=== PATIENT | female | born 1935 | race Caucasian/White ===

== ENCOUNTER 2018-01-16 17:23 | Inpatient (IN) | payer MEDICARE, OTHER ==
[2018-01-16] VITALS (9 sets, daily range): BP systolic 98–115; BP diastolic 46–64
[~2018-01-16] VITALS: Ht 162.6 cm; Wt 82.1 kg
--- NOTE | 2018-01-16 18:09 | NUR ---
DR CARTY WAS PAGED.
--- NOTE | 2018-01-16 18:12 | NUR ---
CALLED NURSING HARNESS TIER AND REQUESTED A TELE BED FOR THIS PT
[2018-01-16 18:14] LABS: CALCIUM, SERUM 8.1 mg/dL (8.5-10.1); CARBON DIOXIDE 22 mmol/L (21-32); CHLORIDE 105 mmol/L (98-107); CREATININE 1.7 mg/dL (0.6-1.3); GLUCOSE 130 mg/dL (74-106); POTASSIUM 3.9 mmol/L (3.5-5.1); SODIUM SERUM 138 mmol/L (136-145); UREA NITROGEN, BLOOD 46 mg/dL (7-18)
[2018-01-16] MEDS ORDERED: OLOP5DRO EACHEYE (18:14)
[2018-01-16] MEDS ORDERED: WARF3TAB59 PO (18:14)
[2018-01-16] MEDS ORDERED: ATEN25TA PO (18:14)
[2018-01-16] MEDS ORDERED: VALS1TAB6 PO (18:14)
[2018-01-16 18:27] LABS: BASOPHILS % (AUTO) 0.4 % (0.0-2.0); EOSINOPHILS % (AUTO) 0.1 % (0.0-6.0); LYMPHOCYTES # (AUTO) 0.8 /CMM (0.8-4.8); LYMPHOCYTES % (AUTO) 12.6 % (20.0-44.0); MEAN CORPUSCULAR HEMOGLOBIN 27 PG (26.0-33.0); MEAN CORPUSCULAR HGB CONC 33 g/dl (31.0-36.0); MEAN CORPUSCULAR VOLUME 81 fL (82-100); MONOCYTES # (AUTO) 0.4 /CMM (0.1-1.30); MONOCYTES % (AUTO) 7.2 % (2.0-12.0); NEUTROPHILS % (AUTO) 79.7 % (43.0-81.0); PLATELET COUNT (AUTO) 181 /CMM (150-450); RDW COEFFICIENT OF VARIATION 15.3 (11.5-15.0); WHITE BLOOD COUNT (AUTO) 6.2 K/uL (4.3-11.0)
[2018-01-16 18:31] LABS: RED BLOOD CELL COUNT(AUTO) 1.71 MIL/uL (4.0-5.2)
[2018-01-16 18:32] LABS: HEMATOCRIT 14 % (33-45); HEMOGLOBIN 4.6 g/dL (11.5-14.8)
[2018-01-16 18:38] LABS: INR 5.59 (0.85-1.15)
[2018-01-16] MEDS ORDERED: ASPIRIN 81 MG TAB.CHEW ONE (18:50)
[2018-01-16] MEDS ORDERED: ASPIRIN 81 MG TAB.CHEW PO ONE (19:00)
[2018-01-16] MEDS ORDERED: ONDANSETRON HCL/PF 4 MG/2 ML VIAL IVP PRN (19:00)
[2018-01-16] MEDS ORDERED: HYDROCODONE/APAP 5/325MG 1 EACH TABLET PO PRN (19:00)
[2018-01-16] MEDS ORDERED: MAGNESIUM HYDROXIDE 30 ML UDC PO PRN (19:00)
[2018-01-16] MEDS ORDERED: MAG HYDROX/AL HYDROX/SIMETH 30 ML UDC PO PRN (19:00)
[2018-01-16] MEDS ORDERED: ACETAMINOPHEN 325 MG TABLET PO PRN (19:00)
[2018-01-16 19:14] LABS: EOSINOPHILS % (MANUAL) 1 % (0-4); LYMPHOCYTES % (MANUAL) 16 % (16-48); MONOCYTES % (MANUAL) 5 % (0-11.0); NEUTROPHILS % (MANUAL) 77 (42-76); REACTIVE LYMPHOCYTES 1 % (0-0)
--- NOTE | 2018-01-16 19:22 | NUR ---
PER DR CARTY, PT WILL NOW BE NEEDING AN ICU BED INSTEAD OF TELE/LIV. NURSING INDUCTOR TESTER WAS MADE AWARE.
--- NOTE | 2018-01-16 19:26 | NUR ---
REPORT GIVEN TO VERENA BURRELL FOR JANAE.
--- NOTE | 2018-01-16 19:53 | NUR ---
PT IS ASSIGNED TO ICU#: [id number], DX: CHEST PAIN, AND ACCEPTING MD: DR CARTY
--- NOTE | 2018-01-16 20:23 | NUR ---
HOSPICE SPIRITUAL CARE COORDINATOR NOTE RECEIVED REPORT FROM ER NURSE JOSELITO
[2018-01-16] MEDS ORDERED: PHYTONADIONE 5 MG TABLET PO ONE (20:30)
--- NOTE | 2018-01-16 20:40 | NUR ---
MAKE UP OPERATOR HELPER INITIAL NOTE RECEIVED PATIENT AWAKE A/OX4, PLEAS[place] LADY. DENIES PAIN OR DISCOMFORT AT THIS TIME, STATES SHE FEELS A LITTLE SHORT OF BREATH, SPO2 ON ROOM AIR 98%. PLACED ON 2LPMO2 VIA NC FOR COMFORT. SKIN COOL AND DRY TO TOUCH. DENIES DIZZINESS AT THIS TIME. DENIES ANY BLEEDING. PATIENT PLACED ON MONITOR, SR WITH OCC PVCS. PER PATIENT SHE LIVES AT AN APARTMENT ALONE, WITH A CAREGIVER THAT VISITS EVERYDAY. STATES SHE HAD CHEST PAIN AND DIZZINESS AT THE TIME AND CALLED HER SON WHO IS A DOCTOR AT [facility], AND HER SON CALLED THE AMBULANCE. ORIENTED PATIENT TO ROOM AND CALL LIGHT SYSTEM, PATIENT VERBALIZED UNDERSTANDING. SIDE RAILS UP AND LOCKED. BED KEPT AT LOWEST POSITION. CALL LIGHT KEPT WITHIN EASY REACH. WILL CONTINUE TO MONITOR.
--- NOTE | 2018-01-16 21:00 | NUR ---
MANAGER EMBALMER FUNERAL DIRECTOR NOTE UNABLE TO SCAN PRODUCT NUMBER FROM BLOOD BAG. BROUGHT BLOOD BACK TO BLOOD BANK, PER BLOOD BANK NETTE USE THE PAPER THAT WAS GIVEN WITH THE BLOOD FOR DOCUMENTATION. INFORMED HER WE CAN'T SCAN IT, IT WONT SHOW UP ON THE COMPUTER. PER BLOOD BANK ITS OK, JUST USE THE PAPER.
--- NOTE | 2018-01-16 21:10 | NUR ---
ADULT LIVE IN CAREGIVER NOTE SON AT BEDSIDE. PER SON HIS MOTHER IS A FULL CODE.
--- NOTE | 2018-01-16 21:20 | NUR ---
UTILITY BAG ASSEMBLER NOTE PER PATIENT SHE'S ALLERGIC TO NARCOTIC MEDICATIONS, STATES SHE DOES NOT LIKE TAKING THEM. AND TYLENOL, STATES IT GIVES HER UPSET STOMACH.
--- NOTE | 2018-01-16 21:25 | NUR ---
UNIT TENDER NOTE NO BLOOD TRANSFUSION REACTION AFTER 15 MINUTES. WILL CONTINUE TO MONITOR.
[2018-01-16] MEDS: PANTOPRAZOLE 40 MG VIAL IV SCH (21:49)
[2018-01-16] MEDS ORDERED: PHYTONADIONE 5 MG TABLET ONE (22:41)
--- NOTE | 2018-01-16 23:26 | NUR ---
CHEMISTRY TEACHER NOTE FIRST UNIT OF BLOOD COMPLETED, NO ADVERSE REACTION NOTED.
[2018-01-17] VITALS (26 sets, daily range): BP systolic 99–136; BP diastolic 40–97
--- NOTE | 2018-01-17 | NUR ---
DEALMAKER NOTE NO ADVERSE REACTION AFTER FIRST 15 MINUTES OF SECOND UNIT OF PRBC, WILL CONTINUE TO MONITOR.
--- NOTE | 2018-01-17 01:04 | NUR ---
GATHERING MACHINE SETTER NOTE PERICARE DONE, PATIENT URINATED LARGE AMOUNT IN DIAPER, NOTED WITH PINK URINE, NO FOUL ODOR NOTED, DENIES PAIN OR DISCOMFORT WHEN URINATING. DENIES BLADDER PAIN OR DISCOMFORT. WILL CONTINUE TO MONITOR.
--- NOTE | 2018-01-17 02:45 | NUR ---
SUPPLY AIDE NOTE NO BLOOD TRANSFUSION REACTION AFTER FIRST 15 MINUTES OF THIRD UNIT OF BLOOD
--- NOTE | 2018-01-17 04:30 | NUR ---
MANAGER DRUG NOTE S/P BLOOD TRANSFUSION OF THIRD UNIT, NO ADVERSE REACTION NOTED. WILL CONTINUE TO MONITOR.
[2018-01-17 05:37] LABS: BASOPHILS % (AUTO) 0.3 % (0.0-2.0); EOSINOPHILS % (AUTO) 0.3 % (0.0-6.0); HEMATOCRIT 24 % (33-45); HEMOGLOBIN 7.7 g/dL (11.5-14.8); LYMPHOCYTES # (AUTO) 1.5 /CMM (0.8-4.8); LYMPHOCYTES % (AUTO) 18.6 % (20.0-44.0); MEAN CORPUSCULAR HEMOGLOBIN 27 PG (26.0-33.0); MEAN CORPUSCULAR HGB CONC 33 g/dl (31.0-36.0); MEAN CORPUSCULAR VOLUME 83 fL (82-100); MONOCYTES # (AUTO) 0.8 /CMM (0.1-1.30); MONOCYTES % (AUTO) 9.8 % (2.0-12.0); NEUTROPHILS # (AUTO) 5.7 /CMM (1.8-8.9); PLATELET COUNT (AUTO) 138 /CMM (150-450); RED BLOOD CELL COUNT(AUTO) 2.85 MIL/uL (4.0-5.2)
[2018-01-17 05:45] LABS: CALCIUM, SERUM 7.9 mg/dL (8.5-10.1); CARBON DIOXIDE 24 mmol/L (21-32); CHLORIDE 104 mmol/L (98-107); CREATININE 1.5 mg/dL (0.6-1.3); GLUCOSE 90 mg/dL (74-106); MAGNESIUM 2.1 mg/dL (1.8-2.4); PHOSPHORUS 4.5 mg/dL (2.5-4.9); POTASSIUM 3.6 mmol/L (3.5-5.1); SODIUM SERUM 138 mmol/L (136-145); UREA NITROGEN, BLOOD 42 mg/dL (7-18)
[2018-01-17 05:48] LABS: IRON, SERUM 66 ug/dl (50-175); TOTAL IRON BINDING CAPACITY 292 ug/dl (250-450)
[2018-01-17 06:27] LABS: INR 3.34 (0.87-1.13)
--- NOTE | 2018-01-17 06:30 | NUR ---
IN HOME AIDE CLOSING NOTES NO SIGNIFICANT CHANGES OVERNIGHT. ALL NEEDS ANTICIPATED AND MET. ASSISTED TO BEDSIDE COMMODE WITH NO DIFFICULTY. URINE SAMPLE COLLECTED. NO C/O SOB AT REST, ONLY WHEN LAYING FLAT. NO C/O PAIN OR DISCOMFORT ONLY WITH ADLS, PER PATIENT TOLERABLE. KEPT CLEAN AND DRY. 3UNITS PRBC GIVEN WITH NO ADVERSE REACTIONS. SIDE RAILS UP AND LOCKED. BED KEPT AT LOWEST POSITION. CALL LIGHT KEPT WITHIN EASY REACH. WILL ENDORSE CONTINUITY OF CARE TO AM NURSE.
[2018-01-17 07:16] LABS: APPEARANCE,URINE SL CLOUDY (CLEAR); BILIRUBIN,URINE NEGATIVE (NEGATIVE); BLOOD, URINE NEGATIVE Ery/uL (NEGATIVE); COLOR,URINE YELLOW (YELLOW); KETONES,URINE NEGATIVE (NEGATIVE); LEUKOCYTE ESTERASE ,URINE NEGATIVE (NEGATIVE); NITRITE, URINE NEGATIVE (NEGATIVE); PROTEIN,URINE NEGATIVE (NEGATIVE); UGLUCOSE NEGATIVE (NEGATIVE); UROBILINOGEN,URINE 0.2 EU/dL (0.2)
--- NOTE | 2018-01-17 07:30 | NUR ---
BODY BUILDER APPRENTICE INITIAL NOTES RECEIVED PATIENT SLEEPING IN BED, EASY TO AROUSE, AOX4, ON NC SATURATING 100% O2, ON TELE MONITORING SR, WITH OCCASIONAL PVCS, ABLE TO USE BEDSIDE COMMODE, IV LFA 18G, RW 20G, BED IN LOW AND LOCKED POSITION, CALL LIGHT WITHIN REACH, WILL CONTINUE TO MONITOR.
[2018-01-17] MEDS: PANTOPRAZOLE 40 MG VIAL IV SCH ×2 (09:37→20:52)
[2018-01-17] MEDS: OLOPATADINE HCL 0.1% OPHTH BOTTLE EACHEYE SCH (09:37)
[2018-01-17 12:30] LABS: BASOPHILS # (AUTO) 0.1 /CMM (0.0-0.2); BASOPHILS % (AUTO) 0.6 % (0.0-2.0); EOSINOPHILS % (AUTO) 0.4 % (0.0-6.0); HEMATOCRIT 24 % (33-45); HEMOGLOBIN 7.9 g/dL (11.5-14.8); LYMPHOCYTES % (AUTO) 10.7 % (20.0-44.0); MEAN CORPUSCULAR HEMOGLOBIN 27 PG (26.0-33.0); MEAN CORPUSCULAR HGB CONC 33 g/dl (31.0-36.0); MEAN CORPUSCULAR VOLUME 83 fL (82-100); MONOCYTES # (AUTO) 0.8 /CMM (0.1-1.30); MONOCYTES % (AUTO) 9.3 % (2.0-12.0); NEUTROPHILS # (AUTO) 7.1 /CMM (1.8-8.9); PLATELET COUNT (AUTO) 137 /CMM (150-450); RDW COEFFICIENT OF VARIATION 17.2 (11.5-15.0); RED BLOOD CELL COUNT(AUTO) 2.93 MIL/uL (4.0-5.2)
[2018-01-17] MEDS: IV D5/0.45 NACL 1,000 ML IV SCH (13:39)
--- NOTE | 2018-01-17 14:30 | NUR ---
AUTOMOTIVE DESIGN DRAFTER NOTES PATIENT SEEN BY GI CONSULT FOR POSSIBLE EGD AND COLONOSCOPY ONCE PATIENT IS STABLE. NEW ORDERS GIVEN.
[2018-01-17] MEDS: POLYETHYLENE GLYCOL 3350 17 GM POWD.PACK PO SCH (15:05)
--- NOTE | 2018-01-17 18:32 | NUR ---
BUTCHER SUPERVISOR END NOTES PATIENT RESTING IN BED, NO SIGNS OF DISTRESS, WILL ENDORSE TO BEHAVIOR THERAPIST FOR CONTINUITY OF CARE.
--- NOTE | 2018-01-17 18:55 | NUR ---
WILDLIFE PROTECTOR NOTE RECEIVED PT AOX3, SPEECH CLEAR, EVEN TONE AND PRESSURE, REPORTS BACK PAIN ALL THE TIME, ON 2L O2 VIA NC TOLERATING WELL, NO S/SX OF CARDIAC OR RESPIRATORY DISTRESS. PT IS AMBULATORY WITH ASSIST, ON TELE SR, SKIN KEPT DRY, LFA #18G SL, R WRIST 20G SL, FLUSHING WELL, PATENT SITES CDI, SAFETY MAINTAINED, BED IN LOW LOCKED POSITION, CALL LIGHT WITHIN REACH, WILL CONTINUE TO MONITOR FRO ANY CHANGES IN CONDITION.
--- NOTE | 2018-01-17 19:08 | NUR ---
REAMER HAND NOTES PATIENT TRANSFERRED TO LIV UNIT ROOM 105, BEDSIDE REPORT GIVEN TO VERENA TRIVEDI.
[2018-01-18] VITALS: BP 122/52
[2018-01-18] MEDS: IV D5/0.45 NACL 1,000 ML IV SCH (03:02)
[2018-01-18 04:00] VITALS: BP 111/45
[2018-01-18 06:25] LABS: BASOPHILS % (AUTO) 0.3 % (0.0-2.0); EOSINOPHILS % (AUTO) 2.3 % (0.0-6.0); HEMATOCRIT 22 % (33-45); HEMOGLOBIN 7.2 g/dL (11.5-14.8); LYMPHOCYTES # (AUTO) 1.2 /CMM (0.8-4.8); MEAN CORPUSCULAR HEMOGLOBIN 27 PG (26.0-33.0); MEAN CORPUSCULAR HGB CONC 33 g/dl (31.0-36.0); MEAN CORPUSCULAR VOLUME 83 fL (82-100); MONOCYTES # (AUTO) 0.7 /CMM (0.1-1.30); MONOCYTES % (AUTO) 10.8 % (2.0-12.0); NEUTROPHILS % (AUTO) 66.6 % (43.0-81.0); PLATELET COUNT (AUTO) 126 /CMM (150-450); RDW COEFFICIENT OF VARIATION 16.7 (11.5-15.0); RED BLOOD CELL COUNT(AUTO) 2.63 MIL/uL (4.0-5.2); WHITE BLOOD COUNT (AUTO) 6.1 K/uL (4.3-11.0)
[2018-01-18 06:37] LABS: ALANINE AMINOTRANSFERASE 15 U/L (12-78); ALBUMIN 2.2 g/dL (3.4-5.0); ALKALINE PHOSPHATASE 67 U/L (46-116); ASPARTATE AMINOTRANSFERASE 23 U/L (15-37); CALCIUM, SERUM 7.5 mg/dL (8.5-10.1); CARBON DIOXIDE 27 mmol/L (21-32); CHLORIDE 106 mmol/L (98-107); CREATININE 1.1 mg/dL (0.6-1.3); GLUCOSE 114 mg/dL (74-106); MAGNESIUM 1.8 mg/dL (1.8-2.4); PHOSPHORUS 3.1 mg/dL (2.5-4.9); POTASSIUM 3.1 mmol/L (3.5-5.1); SODIUM SERUM 140 mmol/L (136-145); TOTAL PROTEIN, SERUM 5.8 g/dL (6.4-8.2); TROPONIN I 0.085 ng/mL (0.00-0.056); UREA NITROGEN, BLOOD 22 mg/dL (7-18)
[2018-01-18 07:44] LABS: INR 2.71 (0.87-1.13)
[2018-01-18 08:00] VITALS: BP 118/60
--- NOTE | 2018-01-18 08:00 | NUR ---
RUBBER PROCESS HAND NOTE RECEIVED PATIENT SITTING IN CHAIR IN HER ROOM, A&OX4, ON 02 VIA NC SATURATING 98%, ON TELE MONITORING SR, ABLE TO USE TOILET, IV ON LFA INTACT, 18G INFUSING D51/2NS AT 75ML/HR, RW 20G INTACT AND SALINE LOCKED. BED IN LOW AND LOCKED POSITION, CALL LIGHT WITHIN REACH. DISCUSSED TODAY'S CARE PLAN WITH PATIENT, PATIENT AGREEABLE AND AWARE OF PLAN. WILL CONTINUE TO MONITOR.
[2018-01-18] MEDS: PANTOPRAZOLE 40 MG VIAL IV SCH ×2 (08:48→21:54)
[2018-01-18] MEDS: OLOPATADINE HCL 0.1% OPHTH BOTTLE EACHEYE SCH (08:48)
[2018-01-18 12:00] VITALS: BP 107/48
[2018-01-18] MEDS ORDERED: POTASSIUM CHLORIDE 20 MEQ TAB.PRT.SR PO SCH (12:00)
[2018-01-18] MEDS: POTASSIUM CHLORIDE 20 MEQ POWDER PACKET PO SCH ×2 (12:28→13:30)
[2018-01-18] MEDS ORDERED: POTASSIUM CHLORIDE 20 MEQ POWDER PACKET GT ONE (15:30)
[2018-01-18 16:00] VITALS: BP 113/57
--- NOTE | 2018-01-18 16:30 | NUR ---
MS RN NOTE: PATIENT WAS SEEN BY DR. ROSENTHAL AND HE WAS AWARE OF THE PATIENT'S HEMOGLOBIN AND HEMATOCRIT (7.2/22) LEVEL FOR TODAY. PER MD, HE WANTED A REPEAT OF THE CBC AND BMP TODAY AT 1700. PATIENT WAS MADE AWARE AND UNDERSTOOD IT.
[2018-01-18 17:43] LABS: CALCIUM, SERUM 7.9 mg/dL (8.5-10.1); CARBON DIOXIDE 24 mmol/L (21-32); CHLORIDE 108 mmol/L (98-107); GLUCOSE 96 mg/dL (74-106); POTASSIUM 3.7 mmol/L (3.5-5.1); SODIUM SERUM 141 mmol/L (136-145); UREA NITROGEN, BLOOD 15 mg/dL (7-18)
[2018-01-18 17:57] LABS: BASOPHILS # (AUTO) 0.1 /CMM (0.0-0.2); BASOPHILS % (AUTO) 0.9 % (0.0-2.0); EOSINOPHILS % (AUTO) 3.1 % (0.0-6.0); HEMATOCRIT 24 % (33-45); HEMOGLOBIN 7.7 g/dL (11.5-14.8); LYMPHOCYTES # (AUTO) 1.5 /CMM (0.8-4.8); LYMPHOCYTES % (AUTO) 24.2 % (20.0-44.0); MEAN CORPUSCULAR HEMOGLOBIN 27 PG (26.0-33.0); MEAN CORPUSCULAR HGB CONC 32 g/dl (31.0-36.0); MEAN CORPUSCULAR VOLUME 84 fL (82-100); MONOCYTES # (AUTO) 0.6 /CMM (0.1-1.30); MONOCYTES % (AUTO) 10.3 % (2.0-12.0); NEUTROPHILS # (AUTO) 3.8 /CMM (1.8-8.9); NEUTROPHILS % (AUTO) 61.5 % (43.0-81.0); PLATELET COUNT (AUTO) 132 /CMM (150-450); RDW COEFFICIENT OF VARIATION 17.1 (11.5-15.0); RED BLOOD CELL COUNT(AUTO) 2.85 MIL/uL (4.0-5.2); WHITE BLOOD COUNT (AUTO) 6.2 K/uL (4.3-11.0)
[2018-01-18 18:20] LABS: OCCULT BLOOD STOOL POSITIVE (NEGATIVE)
--- NOTE | 2018-01-18 18:23 | NUR ---
MS RN NOTE: CALLED AND SPOKE WITH DR. ROSENTHAL RE: THE PATIENT'S REPEAT CBC AND BMP RESULT. MD WITH NEW ORDERS, NOTED AND CARRIED OUT. PER MD, HE ALREADY SPOKE WITH THE PATIENT'S SON REGARDING THE PLAN FOR EGD AND COLONOSCOPY.
[2018-01-18] MEDS ORDERED: PHYTONADIONE INJ 10 MG/1 ML AMPUL IV ONE ×2 (18:30→21:00)
--- NOTE | 2018-01-18 18:30 | NUR ---
MS RN NOTE: REPORTED TO DR. PALMA ABOUT THE PATIENT'S OCCULT BLOOD STOOL RESULT. MD WAS INFORMED THAT THIS IS THE FIRST TIME THE PATIENT HAD A BM AFTER GETTING DOWN GRADED FROM ICU. WITH NO NEW ORDER AT THIS TIME.
--- NOTE | 2018-01-18 19:00 | NUR ---
MS RN CLOSING NOTES GAVE REPORT AND ENDORSED CONTINUITY OF CARE TO PM RN. PATIENT A&0X4, VS STABLE, PATIENT RESTING IN BED, FAMILY AT BEDSIDE.
--- NOTE | 2018-01-18 19:30 | NUR ---
RN OPENING NOTES; RECEIVED PATIENT ON BED AWAKE AND ALERT NOT IN APPARENT DISTRESS ON ROOM AIR. OFF TELE. WITH SON MEAGAN AND DTR IN LAW ALEJANDRO AT BEDSIDE. BOTH FAMILY MEMBERS ARE HEALTHCARE PROVIDERS WELL. OBTAINED CONSENT FOR EGD AND COLONOSCOPY WELL ANESTHESIA AND BLOOD TRANSFUSION CONSENT FROM PATIENT. PATIENT AND SON AWARE OF PROCEDURE. INFORMED PATIENT THAT SHE WILL BE NPO AFTER MIDNIGHT AND THAT SHE WILL HAVE TO DRINK GOLYTLE PREP. PATIENT AWARE AND VERBALIZED UNDERSTANDING. WHEN IV ACCESS ARE ASSESSED ON LEFT AC AND R WRIST, BOTH ARE NOT WORKING WELL AND WITH THE LEFT AC PATIENT COMPLAINS OF PAIN WHEN FLUSHED AND NOTED AREA TO BE WARM TO TOUCH AND ERYTHEMATOUS, POSSIBLY PHLEBITIS. PATIENT;S FAMILY SUSPECTS THAT THE VITAMIN K THAT WAS GIVEN TO HER VIA IV MOMENTS AGO MIGHT NOT HAVE BEEN INTRODUCED WELL IV WAS NOT WORKING PROPERLY. DR BRANCH MADE AWARE OVER THE PHONE, ASKED IF HE WANTED TO DO A REPEAT INR OR ANY LABS, PER MD TO JUST GIVE ANOTHER DOSE OF VITAMIN K 5 MG. PHARMACY MADE AWARE. SAFETY MEASURES ENSURED. CALL LIGHT IN REACH AT ALL TIMES. CONTINUOUSLY MONITORED.
[2018-01-18 20:00] VITALS: BP 137/73
--- NOTE | 2018-01-18 20:16 | NUR ---
RN NOTES: RECEIVED 2UNITS PLASMA ORDER FROM DR PALMA. CONTACTED DNP, MADE AWARE THAT DR BRANCH ALREADY ORDERED VITAMIN K TO BE GIVEN IV. PER LOUIE DESPITE THIS, STILL GIVE PLASMA 8 HOURS PRIOR TO PROCEDURE AND LASIX 20 MG IV TO BE GIVEN POST 1ST UNIT OF PLASMA. NOTED AND CARRIED OUT. BLOOD BANK AWARE, WITH 2 UNITS READY. ACCORDING TO PROCEDURE LIST, PATIENT IS SCHEDULED TOMORROW AT 1600. SON AND DAUGHTER IN LAW MADE AWARE OVER THE PHONE REGARDING PLANS.
[2018-01-18] MEDS ORDERED: PEG 3350/NA SULF,BICARB,CL/KCL 4,000 ML BOTTLE PO ONE (21:00)
[2018-01-18] MEDS: POLYETHYLENE GLYCOL 3350 17 GM POWD.PACK PO SCH (21:54)
[2018-01-19] VITALS (13 sets, daily range): BP systolic 115–156; BP diastolic 55–78
[2018-01-19] MEDS ORDERED: FUROSEMIDE 20 MG/2 ML VIAL IV PRN
[2018-01-19] MEDS ORDERED: FUROSEMIDE 20 MG/2 ML VIAL IV ONE
--- NOTE | 2018-01-19 06:15 | NUR ---
RN NOTES: PATIENT CONTINUOUSLY GOING TO THE COMMODE. WITH CLEAR, NO SEDIMENTS, NO FORMED STOOL BUT CLEAR BROWN COLORED LIQUID STOOL MIXED WITH URINE. PATIENT IS MORE THAN HALF WAY THROUGH THE GOLYTLE. PATIENT REFUSING TO TAKE ANYMORE. EXPLAINED RISK AND BENEFITS, ENCOURAGED TO DRINK MUCH SHE CAN. PATIENT AGREED TO DRINK 2 MORE CUPS. 8AM 0715 CALLED BLOOD BANK TO THAW PLASMA IN PREPARATION. ENDORSED TO BENNIE ALBARADO RE PLASMA TO BE STARTED BY 8AM WHICH IS 8 HOURS PRIOR SCHEDULED PROCEDURE AT 1600. ENDORSED LASIX POST 1ST UNIT ORDERED. REPORT GIVEN TO BENNIE ALBARADO. KEPT PT NPO EXCEPT MEDS.
[2018-01-19 06:23] LABS: BASOPHILS % (AUTO) 0.7 % (0.0-2.0); EOSINOPHILS % (AUTO) 3.5 % (0.0-6.0); HEMATOCRIT 22 % (33-45); HEMOGLOBIN 7.1 g/dL (11.5-14.8); LYMPHOCYTES % (AUTO) 21.9 % (20.0-44.0); MEAN CORPUSCULAR HEMOGLOBIN 27 PG (26.0-33.0); MEAN CORPUSCULAR HGB CONC 33 g/dl (31.0-36.0); MEAN CORPUSCULAR VOLUME 84 fL (82-100); MONOCYTES # (AUTO) 0.5 /CMM (0.1-1.30); MONOCYTES % (AUTO) 11.2 % (2.0-12.0); NEUTROPHILS # (AUTO) 2.8 /CMM (1.8-8.9); NEUTROPHILS % (AUTO) 62.7 % (43.0-81.0); PLATELET COUNT (AUTO) 119 /CMM (150-450); RDW COEFFICIENT OF VARIATION 16.7 (11.5-15.0); RED BLOOD CELL COUNT(AUTO) 2.61 MIL/uL (4.0-5.2); WHITE BLOOD COUNT (AUTO) 4.4 K/uL (4.3-11.0)
[2018-01-19 06:34] LABS: INR 1.45 (0.87-1.13)
[2018-01-19 06:42] LABS: CALCIUM, SERUM 7.6 mg/dL (8.5-10.1); CARBON DIOXIDE 26 mmol/L (21-32); CHLORIDE 107 mmol/L (98-107); GLUCOSE 89 mg/dL (74-106); POTASSIUM 3.4 mmol/L (3.5-5.1); SODIUM SERUM 141 mmol/L (136-145); UREA NITROGEN, BLOOD 13 mg/dL (7-18)
[2018-01-19] MEDS: OLOPATADINE HCL 0.1% OPHTH BOTTLE EACHEYE SCH (09:44)
[2018-01-19] MEDS: PANTOPRAZOLE 40 MG VIAL IV SCH ×2 (09:44→21:34)
[2018-01-19] MEDS: POTASSIUM CL. PREMIX PERIPHER. 50 ML IV SCH ×2 (11:46→13:04)
[2018-01-19 11:49] LABS: INR 1.17 (0.87-1.13)
[2018-01-19] MEDS ORDERED: ANESTHESIA TRAY IN PYXIS 1 EA TRAY MC ONE (14:34)
[2018-01-19] MEDS ORDERED: METHYLENE BLUE 10 ML VIAL ONE (15:45)
[2018-01-19] MEDS: POLYETHYLENE GLYCOL 3350 17 GM POWD.PACK PO SCH (21:34)
[2018-01-19] MEDS: ACETYLCYSTEINE 10% 3,000 MG/30 ML VIAL PO SCH (21:44)
[2018-01-19] MEDS ORDERED: IOHEXOL-300 100 ML VIAL IV ONE (21:47)
[2018-01-19] MEDS ORDERED: IV NS 0.9% 250 ML IV ONE (21:48)
[2018-01-19] MEDS ORDERED: CT SWABBABLE VALVE TRANS SET 1 EA INFUS.SET MC ONE (21:48)
[2018-01-20 04:00] VITALS: BP 113/62
[2018-01-20 06:27] LABS: BASOPHILS % (AUTO) 0.4 % (0.0-2.0); EOSINOPHILS % (AUTO) 2.3 % (0.0-6.0); HEMATOCRIT 22 % (33-45); HEMOGLOBIN 7.2 g/dL (11.5-14.8); LYMPHOCYTES # (AUTO) 0.7 /CMM (0.8-4.8); LYMPHOCYTES % (AUTO) 16.6 % (20.0-44.0); MEAN CORPUSCULAR HEMOGLOBIN 27 PG (26.0-33.0); MEAN CORPUSCULAR HGB CONC 33 g/dl (31.0-36.0); MEAN CORPUSCULAR VOLUME 83 fL (82-100); MONOCYTES # (AUTO) 0.4 /CMM (0.1-1.30); MONOCYTES % (AUTO) 9.9 % (2.0-12.0); NEUTROPHILS # (AUTO) 2.9 /CMM (1.8-8.9); NEUTROPHILS % (AUTO) 70.8 % (43.0-81.0); PLATELET COUNT (AUTO) 117 /CMM (150-450); RDW COEFFICIENT OF VARIATION 16.4 (11.5-15.0); RED BLOOD CELL COUNT(AUTO) 2.65 MIL/uL (4.0-5.2); WHITE BLOOD COUNT (AUTO) 4.1 K/uL (4.3-11.0)
[2018-01-20 06:42] LABS: INR 1.14 (0.87-1.13)
[2018-01-20 06:57] LABS: CALCIUM, SERUM 7.9 mg/dL (8.5-10.1); CARBON DIOXIDE 28 mmol/L (21-32); CHLORIDE 105 mmol/L (98-107); GLUCOSE 87 mg/dL (74-106); MAGNESIUM 1.6 mg/dL (1.8-2.4); PHOSPHORUS 3.1 mg/dL (2.5-4.9); POTASSIUM 3.2 mmol/L (3.5-5.1); SODIUM SERUM 142 mmol/L (136-145); UREA NITROGEN, BLOOD 9 mg/dL (7-18)
[2018-01-20 07:02] LABS: THYROID STIMULATING HORMONE 1.505 uIU/mL (0.358-3.74)
--- NOTE | 2018-01-20 07:44 | NUR ---
RN NOTE: PATIENT RECEIVED ALERT AWAKE ORIENTED X 4. ON ROOM AIR, NO BREATHING DIFFICULTY NOTED. DENIES PAIN & DISCOMFORT. SAFETY MEASURES OBSERVED. PATIENT CLEAN & DRY. IV CATH INTACT, DRESSING DRY & CLEAN. SALINE LOCK. ENCOURAGE TO USE CALL LIGHT FOR ASSISTANCE. WILL CONTINUE TO MONITOR.
[2018-01-20 08:00] VITALS: BP 112/62
[2018-01-20] MEDS: ACETYLCYSTEINE 10% 3,000 MG/30 ML VIAL PO SCH (09:08)
[2018-01-20] MEDS: PANTOPRAZOLE 40 MG VIAL IV SCH ×2 (09:08→21:37)
[2018-01-20] MEDS: OLOPATADINE HCL 0.1% OPHTH BOTTLE EACHEYE SCH (09:08)
[2018-01-20] MEDS ORDERED: POTASSIUM CL. PREMIX PERIPHER. 50 ML IV SCH (11:00)
[2018-01-20] MEDS ORDERED: Magnesium 1GM/D5W 100ML PREMIX 100 ML IV SCH (11:00)
[2018-01-20] MEDS ORDERED: MAGNESIUM OXIDE 400 MG TABLET PO ONE (11:30)
[2018-01-20] MEDS: POTASSIUM CHLORIDE 20 MEQ TAB.PRT.SR PO SCH ×2 (12:11→13:11)
[2018-01-20] MEDS ORDERED: TRAMADOL HCL 50 MG TABLET PO PRN (15:00)
[2018-01-20 16:00] VITALS: BP 131/76
--- NOTE | 2018-01-20 18:37 | NUR ---
RN NOTE: PATIENT REMAINS ALERT AWAKE ORIENTED. ON ROOM AIR, NO BREATHING DISTRESS NOTED. DENIES PAIN & DISCOMFORT. NO ANY SIGNIFICANT CHANGES NOTED DURING SHIFT. SAFETY MEASURES OBSERVED. CALL LIGHT WITHIN REACH. WILL CONTINUE TO MONITOR LAB VALUES.
--- NOTE | 2018-01-20 19:37 | NUR ---
RN MS INITIAL NOTE: PATIENT RECEIVED ALERT AWAKE ORIENTED X 4. ON ROOM AIR, NO SOB NOTED. DENIES PAIN & DISCOMFORT, VS STABLE. SAFETY MEASURES OBSERVED. PATIENT CLEAN & DRY. IV CATH INTACT, DRESSING DRY & CLEAN. SALINE LOCK. ENCOURAGE TO USE CALL LIGHT FOR ASSISTANCE. WILL CONTINUE TO MONITOR.
[2018-01-21] VITALS: BP 131/76
--- NOTE | 2018-01-21 06:47 | NUR ---
RN MS CLOSING NOTE: PATIENT ENDORSED ALERT AWAKE ORIENTED X 4. ON ROOM AIR, NO SOB NOTED. DENIES PAIN & DISCOMFORT, VS STABLE. SAFETY MEASURES OBSERVED. PATIENT CLEAN & DRY. IV CATH INTACT, DRESSING DRY & CLEAN. SALINE LOCK. ENCOURAGE TO USE CALL LIGHT FOR ASSISTANCE. WILL CONTINUE TO MONITOR.
[2018-01-21 06:56] LABS: CALCIUM, SERUM 8.2 mg/dL (8.5-10.1); CARBON DIOXIDE 27 mmol/L (21-32); CHLORIDE 107 mmol/L (98-107); CREATININE 0.9 mg/dL (0.6-1.3); GLUCOSE 93 mg/dL (74-106); MAGNESIUM 1.9 mg/dL (1.8-2.4); POTASSIUM 4.4 mmol/L (3.5-5.1); SODIUM SERUM 142 mmol/L (136-145); UREA NITROGEN, BLOOD 7 mg/dL (7-18)
[2018-01-21 08:00] VITALS: BP 125/66
--- NOTE | 2018-01-21 08:10 | NUR ---
RECEIVED PT IN BED AWAKE, ALERT, ORIENTED X3 VERBALLY RESPONSIVE, DENIES ANY PAIN AT THIS TIME, WANTS MEDS TO BE CHANGE TO POS, WILL F/U WITH .
[2018-01-21 08:11] LABS: IMMUNOGLOBULIN A, SERUM 409 mg/dL (64-422); IMMUNOGLOBULIN G, SERUM 1300 mg/dL (700-1600); IMMUNOGLOBULIN M, SERUM 52 mg/dL (26-217)
[2018-01-21] MEDS: OLOPATADINE HCL 0.1% OPHTH BOTTLE EACHEYE SCH (09:10)
[2018-01-21] MEDS: PANTOPRAZOLE 40 MG VIAL IV SCH ×2 (09:10→22:13)
--- NOTE | 2018-01-21 10:58 | NUR ---
pT IN BED AWAKE, ALERT, ORIENTED X4 VERBALLY RESPONSIVE, AWAITING TO BE TRANSFER TO [facility] FOR FURTHER TX, PT IS COMPLIENT WITH MEDS, HL TO RAC DC PER PT REQUEST, AND ALSO WAS PAINFULL WHEN FLUSHING IV SITE.
[2018-01-21 11:11] LABS: *SPE A/G RATIO 0.8 (0.7-1.7); *SPE ALBUMIN 2.6 g/dL (2.9-4.4); *SPE ALPHA-1-GLOBULIN 0.3 g/dL (0.0-0.4); *SPE ALPHA-2-GLOBULIN 0.6 g/dL (0.4-1.0); *SPE GLOBULIN, TOTAL 3.2 g/dL (2.2-3.9); *SPE M-SPIKE Not Observed g/dL (Not Observed); *SPEGAMMA GLOBULIN 1.4 g/dL (0.4-1.8)
--- NOTE | 2018-01-21 12:36 | NUR ---
Received bedside sbar report on the patient for JANAE. Patient is asleep, easily awaken in bed. bed is locked in lowest position, side rails upx3, bed alarm is on. Call light within reach. Educated the patient to call for assistance using the call light and patient verbalized understanding. Denies pain/discomfort at this time. Will continue to assess/monitor throughout the shift.
[2018-01-21 13:06] LABS: BASOPHILS % (AUTO) 0.6 % (0.0-2.0); EOSINOPHILS % (AUTO) 5.6 % (0.0-6.0); HEMATOCRIT 25 % (33-45); HEMOGLOBIN 7.9 g/dL (11.5-14.8); LYMPHOCYTES # (AUTO) 1.5 /CMM (0.8-4.8); LYMPHOCYTES % (AUTO) 33.6 % (20.0-44.0); MEAN CORPUSCULAR HEMOGLOBIN 27 PG (26.0-33.0); MEAN CORPUSCULAR HGB CONC 32 g/dl (31.0-36.0); MEAN CORPUSCULAR VOLUME 84 fL (82-100); MONOCYTES # (AUTO) 0.5 /CMM (0.1-1.30); MONOCYTES % (AUTO) 10.2 % (2.0-12.0); NEUTROPHILS # (AUTO) 2.2 /CMM (1.8-8.9); PLATELET COUNT (AUTO) 129 /CMM (150-450); RDW COEFFICIENT OF VARIATION 17.1 (11.5-15.0); RED BLOOD CELL COUNT(AUTO) 2.94 MIL/uL (4.0-5.2); WHITE BLOOD COUNT (AUTO) 4.5 K/uL (4.3-11.0)
[2018-01-21 13:47] LABS: EOSINOPHILS % (MANUAL) 4 % (0-4); LYMPHOCYTES % (MANUAL) 40 % (16-48); MONOCYTES % (MANUAL) 8 % (0-11.0); NEUTROPHILS % (MANUAL) 48 (42-76)
[2018-01-21 16:00] VITALS: BP 125/66
--- NOTE | 2018-01-21 17:17 | NUR ---
SPOKE TO VERENA BOWDEN FROM [facility]. GAVE TELEPHONE SBAR REPORT. PER KAL PATIENT'S ACCEPTING MD IS GOING TO BE DR COBURN. STILL AWAITING FOR A BED.
--- NOTE | 2018-01-21 19:06 | NUR ---
Patient is A/O x2, awake and responsive in bed. Bed is locked in lowest position, side rails up x3, bed alarm is on. Kali light within reach. All needs are met. No significant change in condition noted. Will endorse to the night time babysitter nurse for JANAE.
--- NOTE | 2018-01-21 20:02 | NUR ---
RN MS INITIAL NOTE RECEIVED PT FOR PENDING TRANSFER, AWARE OF PLAN, AOX4, NO SOB OR C/O PAIN, ALL NEEDS MET AT THIS TIME. PER AM SHIFT RN CM ON THE CASE. [facility] REPORT GIVEN TO RAMAN MCGEE [phone], ADMITTING MD GERRI FREIRE. WILL CONT TO F/U WITH CARE.
[2018-01-22] VITALS: BP 128/68
--- NOTE | 2018-01-22 06:39 | NUR ---
RN MS CLOSING NOTE ENDORSED PT FOR PENDING TRANSFER, AWARE OF PLAN, AOX4, NO SOB OR C/O PAIN, ALL NEEDS MET AT THIS TIME. PER AM SHIFT RN CM ON THE CASE. [facility] REPORT GIVEN TO RAMAN MCGEE [phone], ADMITTING MD GERRI FREIRE. WILL CONT TO F/U WITH CARE.
--- NOTE | 2018-01-22 07:44 | NUR ---
RN NOTES RECEIVED PT FROM GRINDER BRAKE LINING, A&OX4, ON ROOM AIR NO SOB OR DISTRESS NOTED. LFA 22G IV SITE INTACT NO IVF. BED LOCKED AND IN LOWEST POSITION, CALL LIGHT WITHIN REACH, SIDE RAILS UPX3, WILL CONT TO SJ.
[2018-01-22 08:00] VITALS: BP 134/47
[2018-01-22] MEDS: OLOPATADINE HCL 0.1% OPHTH BOTTLE EACHEYE SCH (09:07)
[2018-01-22] MEDS: PANTOPRAZOLE 40 MG VIAL IV SCH ×2 (09:08→21:00)
[2018-01-22] MEDS ORDERED: TRAM50TA2 PO (11:24)
--- NOTE | 2018-01-22 15:20 | NUR ---
RN NOTES STAT MRI ORDERED BY DR PALMA. PER PT SHE IS TOO TIRED AND WANTS TO REST WOULD LIKE TO GO TOMORROW AM INSTEAD. PT EDUCATED. NOTIFIED.
[2018-01-22 16:00] VITALS: BP 144/87
--- NOTE | 2018-01-22 16:42 | NUR ---
RN NOTES PER PTS SON HE WILL CONVINCE HIS MOM TO DO MRI TODAY. NOTIFIED RADIOLOGY. THEY WILL DO MRI TODAY BUT AFTER 6PM PER PENG.
[2018-01-22 20:00] VITALS: BP 131/58
--- NOTE | 2018-01-22 23:09 | NUR ---
RN NOTES PT REFUSED 2100 PROTONIX MEDICATION
[2018-01-23] VITALS (7 sets, daily range): BP systolic 111–134; BP diastolic 47–78
--- NOTE | 2018-01-23 06:09 | NUR ---
RN CLOSING NOTE: PATIENT ALERT AWAKE ORIENTED X 4. ON ROOM AIR, NO SOB NOTED. DENIES PAIN & DISCOMFORT, VS STABLE. SAFETY MEASURES OBSERVED. PATIENT CLEAN & DRY. IV CATH INTACT, DRESSING DRY & CLEAN. SALINE LOCK. ENCOURAGE TO USE CALL LIGHT FOR ASSISTANCE. WILL ENDORSE TO AM RN.
[2018-01-23 06:49] LABS: CARBON DIOXIDE 26 mmol/L (21-32); CHLORIDE 106 mmol/L (98-107); CREATININE 0.9 mg/dL (0.6-1.3); GLUCOSE 102 mg/dL (74-106); MAGNESIUM 1.7 mg/dL (1.8-2.4); PHOSPHORUS 3.4 mg/dL (2.5-4.9); POTASSIUM 3.6 mmol/L (3.5-5.1); SODIUM SERUM 139 mmol/L (136-145); UREA NITROGEN, BLOOD 13 mg/dL (7-18)
[2018-01-23 06:53] LABS: BASOPHILS % (AUTO) 0.5 % (0.0-2.0); EOSINOPHILS % (AUTO) 4.2 % (0.0-6.0); HEMATOCRIT 24 % (33-45); HEMOGLOBIN 7.6 g/dL (11.5-14.8); LYMPHOCYTES # (AUTO) 1.3 /CMM (0.8-4.8); MEAN CORPUSCULAR HEMOGLOBIN 27 PG (26.0-33.0); MEAN CORPUSCULAR HGB CONC 32 g/dl (31.0-36.0); MEAN CORPUSCULAR VOLUME 84 fL (82-100); MONOCYTES # (AUTO) 0.3 /CMM (0.1-1.30); MONOCYTES % (AUTO) 7.7 % (2.0-12.0); NEUTROPHILS # (AUTO) 2.6 /CMM (1.8-8.9); NEUTROPHILS % (AUTO) 58.6 % (43.0-81.0); PLATELET COUNT (AUTO) 106 /CMM (150-450); RDW COEFFICIENT OF VARIATION 17.2 (11.5-15.0); RED BLOOD CELL COUNT(AUTO) 2.86 MIL/uL (4.0-5.2); WHITE BLOOD COUNT (AUTO) 4.4 K/uL (4.3-11.0)
[2018-01-23] MEDS: PANTOPRAZOLE 40 MG VIAL IV SCH ×2 (08:35→20:48)
[2018-01-23] MEDS: OLOPATADINE HCL 0.1% OPHTH BOTTLE EACHEYE SCH (08:36)
[2018-01-23] MEDS: Magnesium 1GM/D5W 100ML PREMIX 100 ML IV SCH ×3 (09:49→10:08)
[2018-01-23] MEDS ORDERED: MAGNESIUM OXIDE 400 MG TABLET PO ONE (10:30)
--- NOTE | 2018-01-23 19:45 | NUR ---
MS RN NOTE PT IN BED A/A/O X 4, NO SOB, NO DISTRESS OR DISCOMFORT NOTED. DENIES PAIN. LFA WITH HL # 22 G INTACT AND PATENT. SIDE RAILS UP X 2 AND CALL LIGHT WITHIN REACH. VSS. CONTINUE TO MONITOR HER.
[2018-01-24 04:00] VITALS: BP 140/83
--- NOTE | 2018-01-24 06:24 | NUR ---
MS 1 RN NOTE PT IN BED ASLEEP, AROUSABLE. NO DISTRESS OR DISCOMFORT NOTED. DENIES PAIN. LFA SL #22 G INTACT AND PATENT. SIDE RAILS UP X 3 AND CALL LIGHT WITHIN REACH. WILL ENDORSE TO DAY SHIFT NURSE FOR CONTINUE TO CARE.
[2018-01-24 06:35] LABS: BASOPHILS % (AUTO) 0.6 % (0.0-2.0); HEMATOCRIT 24 % (33-45); LYMPHOCYTES # (AUTO) 1.5 /CMM (0.8-4.8); LYMPHOCYTES % (AUTO) 31.1 % (20.0-44.0); MEAN CORPUSCULAR HEMOGLOBIN 27 PG (26.0-33.0); MEAN CORPUSCULAR HGB CONC 33 g/dl (31.0-36.0); MEAN CORPUSCULAR VOLUME 83 fL (82-100); MONOCYTES # (AUTO) 0.4 /CMM (0.1-1.30); MONOCYTES % (AUTO) 8.9 % (2.0-12.0); NEUTROPHILS # (AUTO) 2.7 /CMM (1.8-8.9); NEUTROPHILS % (AUTO) 56.4 % (43.0-81.0); PLATELET COUNT (AUTO) 106 /CMM (150-450); RDW COEFFICIENT OF VARIATION 16.8 (11.5-15.0); RED BLOOD CELL COUNT(AUTO) 2.94 MIL/uL (4.0-5.2); WHITE BLOOD COUNT (AUTO) 4.7 K/uL (4.3-11.0)
[2018-01-24 06:48] LABS: CARBON DIOXIDE 26 mmol/L (21-32); CHLORIDE 106 mmol/L (98-107); CREATININE 0.9 mg/dL (0.6-1.3); GLUCOSE 102 mg/dL (74-106); MAGNESIUM 1.8 mg/dL (1.8-2.4); PHOSPHORUS 3.1 mg/dL (2.5-4.9); POTASSIUM 3.5 mmol/L (3.5-5.1); SODIUM SERUM 138 mmol/L (136-145); UREA NITROGEN, BLOOD 12 mg/dL (7-18)
--- NOTE | 2018-01-24 07:00 | NUR ---
RN NOTES RECEIVED PT ON BED, A/OX4, ON 2L O2 N/C, RESPIRATION EVEN AND UNLABORED , NO SOB NOTED, L FA IV SITE G 22, CLEAN , DRY AND INTACT, SR UP x3, CALL LIGHT WITHIN EASY REACH , BED LOCKED AND IN LOWEST POSITION, CONTINUE TO MONITOR .
[2018-01-24 08:00] VITALS: BP 114/70
[2018-01-24] MEDS: PANTOPRAZOLE 40 MG VIAL IV SCH ×3 (08:48→21:25)
[2018-01-24] MEDS: OLOPATADINE HCL 0.1% OPHTH BOTTLE EACHEYE SCH (08:48)
--- NOTE | 2018-01-24 12:00 | NUR ---
RN NOTES PT STABLE , CONTINUE TO MONITOR .
[2018-01-24 16:00] VITALS: BP 129/82
--- NOTE | 2018-01-24 18:17 | NUR ---
RN NOTES SUPPORTIVE FAMILY AT THE BEDSIDE, L FA IV SITE CLEAN, DRY AND INTACT , SR UP x3, REE LIGHT WITHIN EASY REACH, WILL ENDOSE TO BROODMARE FOREMAN NURSE FOR CONTINUITY OF CARE.
[2018-01-24 20:00] VITALS: BP 121/61
--- NOTE | 2018-01-24 20:00 | NUR ---
MS RN NOTE PT IN BED AWAKE. A/O X 4, NO SOB, NO DISTRESS OR DISCOMFORT NOTED. DENIES PAIN. LFA #22 G INTACT AND PATENT. FAMILY AT BED SIDE. SIDE RAILS UP X 2 AND CALL LIGHT WITHIN REACH. VSS. CONTINUE TO MONITOR HER.
[2018-01-25 08:00] VITALS: BP 124/61
[2018-01-25] MEDS: PANTOPRAZOLE 40 MG VIAL IV SCH ×2 (08:29→08:49)
[2018-01-25] MEDS: OLOPATADINE HCL 0.1% OPHTH BOTTLE EACHEYE SCH (08:30)
--- NOTE | 2018-01-25 08:52 | NUR ---
RN NOTE PT REFUSED PROTONIX IV, STATING THAT IV IS HURTING, WILL FOLLOW UP WITH MD TO SWITCH TO TABLET. PT DENIES STOMACH ACHE, N/V/D.
[2018-01-25 16:00] VITALS: BP 113/49
--- NOTE | 2018-01-25 19:53 | NUR ---
RN OPENING NOTES RECEIVED REPORT FROM NYLA ALBARADO. PATIENT A/A/O X4, ABLE TO MAKE NEEDS KNOWN. BREATHING EVEN & UNLABORED, TOLERATING O2 @ 2LPM VIA NC. PULSES PRESENT & BOUNDING. DENIES ANY RESPIRATORY OR CARDIAC DISTRESS. C/O CHRONIC BACK PAIN BUT REFUSES TO BE TURNED D/T TOO MUCH PAIN. OFFERED PAIN MED BUT REFUSED. WILL TRY TO PROVIDE SOME NON-PHARMACOLOGICAL INTERVENTIONS IF TOLERATED. DENIES ANY DIZZINESS OR LIGHTHEADEDNESS. NO N/V/D. SAFETY MEASURES MAINTAINED W/ BED ALARM ON & CALL LIGHT WITHIN REACH. INSTRUCTED TO CALL FOR ASSISTANCE. SON @ BEDSIDE. WILL CONTINUE TO MONITOR.
[2018-01-25 20:00] VITALS: BP 124/73
[2018-01-25] MEDS: PANTOPRAZOLE 40 MG TABLET.DR PO SCH (20:48)
[2018-01-26 04:00] VITALS: BP 121/67
[2018-01-26 07:01] LABS: HEMATOCRIT 24 % (33-45); HEMOGLOBIN 7.7 g/dL (11.5-14.8); MEAN CORPUSCULAR HEMOGLOBIN 27 PG (26.0-33.0); MEAN CORPUSCULAR HGB CONC 32 g/dl (31.0-36.0); MEAN CORPUSCULAR VOLUME 84 fL (82-100); RDW COEFFICIENT OF VARIATION 17.3 (11.5-15.0); RED BLOOD CELL COUNT(AUTO) 2.81 MIL/uL (4.0-5.2); WHITE BLOOD COUNT (AUTO) 4.1 K/uL (4.3-11.0)
[2018-01-26 07:02] LABS: BASOPHILS % (AUTO) 0.8 % (0.0-2.0); EOSINOPHILS % (AUTO) 2.5 % (0.0-6.0); LYMPHOCYTES # (AUTO) 1.3 /CMM (0.8-4.8); LYMPHOCYTES % (AUTO) 32.8 % (20.0-44.0); MONOCYTES # (AUTO) 0.4 /CMM (0.1-1.30); MONOCYTES % (AUTO) 9.3 % (2.0-12.0); NEUTROPHILS # (AUTO) 2.2 /CMM (1.8-8.9); NEUTROPHILS % (AUTO) 54.6 % (43.0-81.0); PLATELET COUNT (AUTO) 58 /CMM (150-450)
--- NOTE | 2018-01-26 07:10 | NUR ---
MS/RN INITIAL NOTES RECEIVED PT IN BED, A/O X4, ON 2LPM O2 VIA NC, TOLERATING WELL , NO SOB NOTED. WITH C/O BACK PAIN, OFFERED PAIN MEDS, PT REFUSED, PER PT ITS CHRONIC BACK PAIN. DENIES CHEST PAIN/LIGHTHEADEDNESS. PER PM SHIFT NURSE, CHAPO, PT REFUSED TO HAVE IV LINE. HOB ELEVATED, SAFETY MEASURES IN PLACED. CALL LIGHT WITHIN REACH. WILL CONT TO MONITOR
[2018-01-26 08:00] VITALS: BP 120/62
[2018-01-26] MEDS: PANTOPRAZOLE 40 MG TABLET.DR PO SCH (08:23)
[2018-01-26] MEDS: OLOPATADINE HCL 0.1% OPHTH BOTTLE EACHEYE SCH (08:36)
[2018-01-26 08:51] LABS: EOSINOPHILS % (MANUAL) 5 % (0-4); LYMPHOCYTES % (MANUAL) 26 % (16-48); MONOCYTES % (MANUAL) 7 % (0-11.0); NEUTROPHILS % (MANUAL) 62 (42-76)
--- NOTE | 2018-01-26 12:00 | NUR ---
RN NOTES RECEIVED CALL FROM CIERA ELENA, ROOM IN [facility] IS NOW AVAILABLE. PT IS FOR DIRECT TRANSFER TO [facility] ROOM 5124. PT MADE AWARE
--- NOTE | 2018-01-26 13:00 | NUR ---
RN NOTES REPORT GIVEN TO VERENA OLMSTEAD ([facility])
--- NOTE | 2018-01-26 13:44 | NUR ---
D/C PT TO [facility] IN STABLE CONDITION VIA AMBULANCE. REPORT GIVEN TO HEALTHCARE INSURANCE SALES AGENT. NO ACUTE DISTRESS NOTED. DENIES CHEST PAIN/SOB. REMAINED NO SIGNS OF BLEEDING. D/C INSTRUCTIONS GIVEN TO PT. REPORT GIVEN TO VERENA OLMSTEAD. SAFETY MEASURES OBSERVED AT ALL TIMES. ALL NEEDS ANTICIPATED. D/C TO [facility] ROOM 5124 FOR DIRECT ADMIT. OFFERED TO INSERT NEW IV LINE. EXPLAINED RISKS AND BENEFITS. PT STRONGLY REFUSED,.
== END 2018-01-26 13:46 | disposition short-term general hospital (02) | DRG 374 ==
LOC: ER 17:25 → ICU 19:55 → TELE1 01-17 19:00 → MEDSG1 01-18 12:38
PROVIDERS: ADMIT Internal Medicine; ATTEND Internal Medicine
PROC: 30233N1 Transfusion of Nonautologous Red Blood Cells into Peripheral Vein, Percutaneous Approach (ICD-10-PCS; principal; 2018-01-16)
PROC: 30233K1 Transfusion of Nonautologous Frozen Plasma into Peripheral Vein, Percutaneous Approach (ICD-10-PCS; 2018-01-16)
PROC: 0DB68ZX Excision of Stomach, Via Natural or Artificial Opening Endoscopic, Diagnostic (ICD-10-PCS; 2018-01-19)
PROC: 0DBL8ZX Excision of Transverse Colon, Via Natural or Artificial Opening Endoscopic, Diagnostic (ICD-10-PCS; 2018-01-19)
DX: C18.4 Malignant neoplasm of transverse colon (principal); N17.0 Acute kidney failure with tubular necrosis; I21.A1 Myocardial infarction type 2; I50.33 Acute on chronic diastolic (congestive) heart failure; D68.69 Other thrombophilia; D61.818 Other pancytopenia; C77.9 Secondary and unspecified malignant neoplasm of lymph node, unspecified; D64.9 Anemia, unspecified; Z86.711 Personal history of pulmonary embolism; Z79.01 Long term (current) use of anticoagulants; I11.0 Hypertensive heart disease with heart failure; Z88.5 Allergy status to narcotic agent; Z79.899 Other long term (current) drug therapy; M47.9 Spondylosis, unspecified; D50.9 Iron deficiency anemia, unspecified; Z90.49 Acquired absence of other specified parts of digestive tract; R73.03 Prediabetes; T44.5X5A Adverse effect of predominantly beta-adrenoreceptor agonists, initial encounter; T50.2X5A Adverse effect of carbonic-anhydrase inhibitors, benzothiadiazides and other diuretics, initial encounter; Y92.009 Unspecified place in unspecified non-institutional (private) residence as the place of occurrence of the external cause; K59.00 Constipation, unspecified; K64.8 Other hemorrhoids; I35.0 Nonrheumatic aortic (valve) stenosis; D12.5 Benign neoplasm of sigmoid colon; I25.10 Atherosclerotic heart disease of native coronary artery without angina pectoris; K29.40 Chronic atrophic gastritis without bleeding; K44.9 Diaphragmatic hernia without obstruction or gangrene; K57.30 Diverticulosis of large intestine without perforation or abscess without bleeding
CPT/HCPCS: 36415; 71045-TC; 71260-TC; 72148-TC; 80048-TC; 80053-TC; 81000-TC; 82272-TC; 82378; 82728-TC; 82746; 82784; 83540-TC; 83735-TC; 83880; 84100-TC; 84155; 84165; 84439-TC; 84443-TC; 84484-TC; 85025-TC; 85610-TC; 85730-TC; 86334; 86850-TC; 86921-TC; 87081-TC; 88305-TC; 88313-TC; 88342; 93307-TC; 93970-TC; 97110-TC; 97116-TC; 97530-TC; A4606; C9113; J1940; J3430; J3475; J3480; J3490; J7050; P9016-BL; P9017-BL; Q9967; Q9968; Z7610

== ENCOUNTER 2018-02-13 15:16 | Emergency (ER) | payer MEDICARE, OTHER ==
[~2018-02-13] VITALS: Ht 165.1 cm; Wt 75.3 kg
[~2018-02-13 15:16] MED LIST: ATEN25TA PO; OLOP5DRO EACHEYE; TRAM50TA2 PO; VALS1TAB6 PO
--- NOTE | 2018-02-13 15:20 | NUR ---
[id number] FROM [facility] FOR CHEST PAIN STARTED AT 1140 AM DURING PHYSICAL THERAPY, [id number], NITRO 0.4 X 1 GIVEN BY EMS. BS-130. NAD NOTED, VSS, RESP EVEN AND UNLABORED. PT WAS PUT ON MONITOR, WAITING FOR MD ROUSE.
[2018-02-13 16:18] LABS: BASOPHILS % (AUTO) 0.7 % (0.0-2.0); EOSINOPHILS % (AUTO) 1.6 % (0.0-6.0); HEMATOCRIT 32 % (33-45); HEMOGLOBIN 10.1 g/dL (11.5-14.8); LYMPHOCYTES # (AUTO) 2.1 /CMM (0.8-4.8); MEAN CORPUSCULAR HEMOGLOBIN 27 PG (26.0-33.0); MEAN CORPUSCULAR HGB CONC 32 g/dl (31.0-36.0); MEAN CORPUSCULAR VOLUME 84 fL (82-100); MONOCYTES # (AUTO) 0.5 /CMM (0.1-1.30); MONOCYTES % (AUTO) 7.4 % (2.0-12.0); NEUTROPHILS # (AUTO) 3.6 /CMM (1.8-8.9); NEUTROPHILS % (AUTO) 57.3 % (43.0-81.0); PLATELET COUNT (AUTO) 148 /CMM (150-450); RDW COEFFICIENT OF VARIATION 17.1 (11.5-15.0); RED BLOOD CELL COUNT(AUTO) 3.77 MIL/uL (4.0-5.2); WHITE BLOOD COUNT (AUTO) 6.3 K/uL (4.3-11.0)
[2018-02-13] MEDS ORDERED: LIDO30AD10 TP (16:28)
[2018-02-13] MEDS ORDERED: PANT40TA4 PO (16:28)
[2018-02-13] MEDS ORDERED: POLY17PO4 PO (16:28)
[2018-02-13] MEDS ORDERED: IRBE300T19 PO (16:28)
[2018-02-13] MEDS ORDERED: ENOX40DI SQ (16:28)
[2018-02-13] MEDS ORDERED: ASPI-1169 PO (16:28)
[2018-02-13] MEDS ORDERED: TRAM50TA2 PO (16:28)
--- NOTE | 2018-02-13 16:29 | NUR ---
CALLED NURSING WINDOWS SERVER SPECIALIST AND REQUESTED A LIV BED FOR THIS PT.
[2018-02-13 16:31] LABS: CALCIUM, SERUM 8.6 mg/dL (8.5-10.1); CARBON DIOXIDE 26 mmol/L (21-32); CHLORIDE 103 mmol/L (98-107); CREATININE 1.1 mg/dL (0.6-1.3); GLUCOSE 128 mg/dL (74-106); INR 0.96 (0.85-1.15); POTASSIUM 3.7 mmol/L (3.5-5.1); SODIUM SERUM 135 mmol/L (136-145); UREA NITROGEN, BLOOD 14 mg/dL (7-18)
[2018-02-13 16:39] LABS: TROPONIN I 0.089 ng/mL (0.00-0.056)
[2018-02-13 16:43] LABS: B-TYPE NATRIURETIC PEPTIDE 2005 PG/ML (0-125)
--- NOTE | 2018-02-13 17:18 | NUR ---
CALLED [facility] FOR PANEL CALL AND DR BEVERLY WAS PAGED.
--- NOTE | 2018-02-13 17:21 | NUR ---
PT IS ASSIGNED TO [facility]#: [id number], DX: CHEST PAIN, AND ACCEPTING: DR. BEVERLY.
--- NOTE | 2018-02-13 18:46 | NUR ---
CALLED THE OFFICE OF WEAVER APPRENTICE, DR BUD HUNG, AND PAGE WAS SENT OUT TO HIM.
--- NOTE | 2018-02-13 19:10 | NUR ---
REPORT RECEIVED FROM VERENA MCGEE FOR JANAE.
[2018-02-13] MEDS ORDERED: IOHEXOL-350 100 ML VIAL IV ONE (19:12)
[2018-02-13] MEDS ORDERED: IV NS 0.9% 250 ML IV ONE (19:12)
--- NOTE | 2018-02-13 19:38 | NUR ---
20G IV TO R AC X 1 ATTEMPT USING ASEPTIC TECH. IV FLUSHES EASILY WITH NS, NO S/S INFILTRATION NOTED AT THIS TIME.
--- NOTE | 2018-02-13 19:41 | NUR ---
PT TO CT VIA STRETCHER.
--- NOTE | 2018-02-13 20:33 | NUR ---
SPOKE TO DEVENDRA AT [facility] TRANSFER CENTER AND WAS TOLD THAT THIS PT WAS ACCEPTED AT [facility] UNDER DR COBURN. PT IS ASSIGNED TO #: [id number] AND THE NUMBER FOR REPORT IS [phone].
[2018-02-13 20:46] VITALS: BP 122/57
--- NOTE | 2018-02-13 20:46 | NUR ---
CALLED [facility] AND SPOKE TO JUNIOR WEB DESIGNER DALIA TO ARRANGE AN ALS TRANSPORT TO [facility]. WAS GIVEN A RUSTIC TERRAZZO SETTER TIME OF 2129. TRIP #: [id number]
--- NOTE | 2018-02-13 20:55 | NUR ---
REPORT GIVEN TO VERENA WHITNEY AT [facility] FOR JANAE.
--- NOTE | 2018-02-13 21:01 | NUR ---
NEW ETA IS 2230 FOR [facility] PICKUP
[2018-02-13] MEDS ORDERED: HEPARIN INFUSION/D5W 500 ML IV ONE (21:24)
[2018-02-13] MEDS ORDERED: HEPARIN SODIUM, PORCINE 5000 UNITS/1 ML VIAL ONE (21:25)
[2018-02-13] MEDS ORDERED: HEPARIN SODIUM, PORCINE 5000 UNITS/1 ML VIAL IV ONE (21:30)
[2018-02-13] MEDS ORDERED: HEPARIN INFUSION/D5W 500 ML IV PRN (21:30)
--- NOTE | 2018-02-13 21:43 | NUR ---
CALLED [facility] AND SPOKE TO PRODUCTION INTERNSHIP PRANAV TO UPGRADE THE PREVIOUS ALS TRANSPORT TO [facility] DUE TO THE ONGOING HEPARIN DRIP. WAS GIVEN A BLIND LACER TIME OF [id number]
--- NOTE | 2018-02-13 22:27 | NUR ---
REPORT GIVEN TO VERENA KESSLER WITH [facility] FOR JANAE.
== END 2018-02-13 22:33 | disposition short-term general hospital (02) ==
LOC: ER 15:17 → UNDOADMIN 17:29 → TELE-TD 17:29 → ER 22:33
DX: I26.99 Other pulmonary embolism without acute cor pulmonale (principal); R07.89 Other chest pain; R79.89 Other specified abnormal findings of blood chemistry; Z95.2 Presence of prosthetic heart valve; I10 Essential (primary) hypertension; E78.5 Hyperlipidemia, unspecified; D64.9 Anemia, unspecified; Z88.6 Allergy status to analgesic agent; Z86.718 Personal history of other venous thrombosis and embolism; Z79.82 Long term (current) use of aspirin; Z79.899 Other long term (current) drug therapy; Z79.01 Long term (current) use of anticoagulants
CPT/HCPCS: 36415; 71045; 71275; 80048; 83880; 84484; 85025; 85730; 87081; 93005 ×2; 96365; 96375; 99285; A4606; J1644 ×2; J7050; Q9967; Z7610